=== PATIENT | male | born 1980 | race Caucasian/White ===

== ENCOUNTER 2023-02-08 21:43 | Emergency (ER) | payer OTHER, SELFPAY ==
[2023-02-08 21:44] VITALS: BP 155/108; PULSE 88; RESP 16; TEMP 36.4; O2SAT 98; BMI 31.0
--- NOTE | 2023-02-08 22:19 | EDS_ITS ---
HPI HPI - GI History of Present Illness Chief Complaint: Foreign Body Informant: patient Narrative Narrative: 42-year-old healthy male states that he was eating a roast beef sandwich from [employer], and after the first couple bites he felt like it was stuck in his upper esophagus, resulting in him vomiting several times, he feels like it is still stuck. He denies any shortness of breath. States he has had this happen before but he cleared it, and has never seen anyone for it until now because it still feels like things are stuck. PFSH PFSH Medical History no medical history no medical history Home Medications pantoprazole 40 mg tablet,delayed release 40 mg PO DAILY #14 tabs 02/08/23 [Rx Last Taken Unknown] Allergy/AdvReac Type Severity Reaction Status Date / Time No Known Allergies Allergy Verified 02/08/23 21:44 Family History no significant family his Surgical History no surgical history Social History household members: spouse and children current occupational status: employed Smoking Status: Never smoker ROS ROS ED Constitutional Constitutional ED: Denies chills Eyes Eyes: Denies change in vision or diplopia ENT ENT ED: Reports as per HPI and other Details: Foreign body throat see HPI ; Denies rhinorrhea or sore throat Cardiovascular Cardiovascular: Denies chest pain or palpitations Respiratory/Chest Respiratory/Chest: Denies cough or dyspnea Gastrointestinal Gastrointestinal: Reports vomiting; Denies abdominal pain, diarrhea or nausea Genitourinary Genitourinary ED: Denies dysuria or hematuria Musculoskeletal Musculoskeletal: Denies back pain or neck pain Integumentary Denies abscess or rash Neurologic Neurologic: Denies headache(s), paresthesias or weakness Psychiatric Psychiatric: Denies anxiety or suicidal thoughts EXAM Physical Exam Const Vital Signs: 02/08/23 21:44 02/08/23 21:51 Temperature 97.5 F L Temperature Source Temporal Pulse Rate 88 Respiratory Rate 16 Respiratory Effort Normal Respiratory Pattern Normal Blood Pressure 155/108 H Blood Pressure Mean 123 Pulse Ox 98 Positive well nourished and well developed General Appearance ED: well developed and NAD HEENT Reports moist mucous membranes HEENT Narrative: Normal speech. No stridor. No respiratory distress. Speaking in full senses. Tolerating secretions. normocephalic and atraumatic Eyes PERRL and EOMs intact bilaterally Neck full ROM and supple Resp normal respiratory effort and clear to auscultation bilaterally Cardio regular rate, regular rhythm and no murmurs GI non-tender and non-distended Auscultation: normoactive bowel sounds Palpation: soft Back/Spine no CVA tenderness General Back: other FROM Extremity normal to inspection General Extremety ED: Negative for edema, pulses abnormal or tenderness General Extremity: Negative for edema or pulses abnormal Neuro oriented x3, CN's II-XII intact bilaterally and no sensory deficits noted Sensorium / Orientation: awake and alert Motor Exam: strength 5/5 throughout Skin no rashes or lesions noted and no wounds MDM MDM MDM Narrative Medical decision making narrative: Patient was ordered glucagon but before getting it, he felt like the food passed and he was able to belch without difficulty. He asked for something to drink, we got him some Sprite and he was able to drink it without any difficulty or vomiting. He feels a lot better. Given this he will be referred to GI and given appropriate discharge instructions especially regarding chewing his food carefully. We will put him on Protonix for 2 weeks. Discharge Plan Triage Chief Complaint: Foreign Body ED Provider: Aaron Salinas Dx/Rx/DC Orders Clinical Impression: Obstruction of esophagus due to food impaction Instructions: ED Esophageal Foreign Body, Resolved Prescriptions: New pantoprazole 40 mg tablet,delayed release (DR/EC) 40 mg PO DAILY Qty: 14 0RF Primary Care Provider: Baldev Rosen Referrals: Baldev Rosen MD [Primary Care Provider] - Franck Velez DO [Med Staff - Active Staff] - (call for appt) Activity Restrictions/Additional Instructions: Fill and take the prescription as directed for 2 weeks to encourage healing of remaining affected area where the food was stuck, and to keep it from bleeding. Disposition Disposition: Home, Self Care
[2023-02-08 22:56] VITALS: BP 134/99; PULSE 88; RESP 18; O2SAT 93
== END 2023-02-08 22:58 | disposition home or self-care (01) ==
PROVIDERS: Emergency Provider Emergency Medicine; PCP Family Medicine; Visit Provider Emergency Medicine
DX: K22.2 Esophageal obstruction (principal)
CPT/HCPCS: 99282; J1610

== ENCOUNTER → 2023-05-09 | Outpatient (CLI) | payer OTHER, SELFPAY ==
--- NOTE | 2023-05-09 07:55 | RAD_ITS ---
STUDY: X-RAY - ESOPHAGUS (BARIUM SWALLOW) WITH FLUOROSCOPY REASON FOR EXAM: Male, 42 years old. DYSPHAGIA TECHNIQUE: 15 view(s) of the esophagus were obtained following swallowing of barium. FLUOROSCOPY TIME (if supplied): (42nd) minutes/seconds COMPARISON: None. FINDINGS: There is no demonstrated esophageal foreign body. There is no demonstrated stricture or mucosal abnormality. Normal gastroesophageal junction, without a demonstrated hiatal hernia. The patient ingested a 12 mm tablet of barium without any difficulty. Normal visualized aortic arch and descending thoracic aorta. Normal visualized pulmonary parenchyma. Normal visualized osseous structures of the thorax. RAD/Esophagus Single Contrast IMPRESSION: Normal plain film x-ray examination (barium swallow) of the esophagus. Electronically Signed: Christiano Pablo MD at 9:51 EST ,
== END | disposition home or self-care (01) ==
PROVIDERS: PCP Family Medicine; Referring Provider Internal Medicine Gastroenterology; Visit Provider Internal Medicine Gastroenterology
DX: R13.10 Dysphagia, unspecified (principal)
CPT/HCPCS: 74220

== ENCOUNTER 2024-01-27 05:56 | Outpatient (CLI) | payer OTHER, SELFPAY ==
[2024-01-27 07:01] LABS: AST(SGOT) 24 U/L (15-37); Alanine Aminotransfer ALT/SGPT 62 U/L (16-61); Alkaline Phosphatase 81 U/L (45-117); Anion Gap 4 (5-15); BUN 14 mg/dL (7-18); BUN/Creat Ratio 12.5 RATIO (10-20); Calcium,Total 9.4 mg/dL (8.5-10.1); Chloride 108 mmol/L (98-107); Creatinine, Serum 1.12 mg/dL (0.70-1.30); EST Glomerular Filtration Rate 76 mL/min (>60); Est Glom Filt Rate - Afr Amer 92 mL/min (>60); Glucose 105 mg/dL (74-106); Sodium Level 140 mmol/L (136-145)
== END 2024-01-27 23:59 | disposition home or self-care (01) ==
LOC: LAB 05:59
PROVIDERS: PCP Family Medicine; Referring Provider Family Medicine; Visit Provider Family Medicine
DX: Z83.79 Family history of other diseases of the digestive system (principal)
CPT/HCPCS: 36415; 80053